=== PATIENT | male | born 1995 | race Caucasian/White ===

== ENCOUNTER 2020-09-29 20:50 | Emergency (ER) | payer OTHER ==
[2020-09-29 20:58] VITALS: BP 130/77
--- NOTE | 2020-09-29 20:59 | ED Physician Documentation ---
PD HPI CHEST PAIN - Stated complaint Stated Complaint: CP,SOA - Chief complaint Chief Complaint: Cardiac - History obtained from History obtained from: Patient - History of Present Illness Timing - onset: How many hours ago Timing - onset during: Rest Timing - details: Abrupt onset Pain level now: 7 Quality: Tightness, Pain Location: Substernal Radiation: Other (midline/substernal, radiates bilateral across anterior chest) Improved by: Nothing Worsened by: Inspiration Associated symptoms: Shortness of air. No: Diaphoresis, Nausea, Vomiting, Palpitations, Cough Similar symptoms before: Other (similar symptoms approximately 1.5 months ago but only lasted 10 minutes thus did not seek medical attention) Recently seen: Not recently seen - Additional information Additional information: c/o midline lower chest pain , onset while at home at rest approximately 1 hour [employer]. the pain waxes and wanes without obvious factors, although there is some pleuritic component as well as sometimes worse with palpation of sternum. Review of Systems Constitutional: denies: Fever Cardiac: reports: Chest pain / pressure. denies: Palpitations, Pedal edema, Calf pain Respiratory: reports: Dyspnea. denies: Cough GI: reports: Reviewed and negative Musculoskeletal: denies: Back pain, Extremity swelling PD PAST MEDICAL HISTORY - Past Medical History Past Medical History: No - Past Surgical History Past Surgical History: No - Allergies Allergies/Adverse Reactions: Allergies Allergy/AdvReac Type Severity Reaction Status Date / Time No Known Drug Allergies Allergy Verified 09/29/20 20:53 - Living Situation Living Arrangement: reports: At home PD ED PE NORMAL - Vitals Vital signs reviewed: Yes - General General: Alert and oriented X 3, No acute distress, Well developed/nourished - Neck Neck: Supple, no meningeal sign - Cardiac Cardiac: RRR, No murmur, No gallop, No rub - Respiratory Respiratory: No respiratory distress, Clear bilaterally - Abdomen Abdomen: Soft, Non tender - Extremities Extremities: No edema Results - Vitals Vitals: Vital Signs - 24 hr 09/29/20 09/29/20 20:53 21:15 Temperature 36.5 C 36.5 C Heart Rate 84 84 Respiratory 18 18 Rate Blood Pressure 130/77 130/77 O2 Saturation 98 98 Oxygen O2 Source Room air - EKG (time done) No standard instances Rate: Rate (enter#) (84) Rhythm: NSR Walling: Normal Intervals: Normal SC QRS: Normal Ischemia: ST elevation c/w repol - Labs Labs: Laboratory Tests 09/29/20 09/29/20 09/29/20 21:13 21:13 21:43 WBC 6.7 RBC 5.04 Hgb 15.2 Hct 43.2 MCV 85.7 MCH 30.2 MCHC 35.2 RDW 11.4 L Plt Count 186 MPV 10.5 Neut # (Auto) 3.8 Lymph # (Auto) 2.1 Murray # (Auto) 0.5 Eos # (Auto) 0.3 Baso # (Auto) 0.0 Absolute Nucleated RBC 0.00 Nucleated RBC % 0.0 D-Dimer < 200.0 L Sodium 140 Potassium 3.4 L Chloride 104 Carbon Dioxide 25 Anion Gap 11.0 BUN 19 Creatinine 0.9 Estimated GFR (MDRD) 103 Glucose 99 Calcium 9.3 Total Bilirubin 0.5 AST 30 ALT 30 Alkaline Phosphatase 58 Total Protein 7.2 Albumin 4.4 Globulin 2.8 Albumin/Globulin Ratio 1.6 Lipase 51 - Rads (name of study) chest xray Radiology: Prelim report reviewed, See rad report PD MEDICAL DECISION MAKING - ED course Complexity details: reviewed results, re-evaluated patient, considered differential, d/w patient ED course: 24 year old male presents to ED with chest pain x 1 hour, midline but radiates bilaterally such that most of anterior chest is involved; there is associated dyspnea, with some pleuritic component. Unremarkable w/u at this time includes EKG, CXR, and blood tests including d-dimer. On reevaluation, he is resting comfortably and reports improvement after IV toradol. Results d/w patient and he is comfortable with d/c home, will return if worse and f/u with PMD Departure - Departure Disposition: Home, Self Care Clinical Impression: Chest pain Condition: Good Instructions: ED Chest Pain Atypical Unkn Cause Follow-Up: RACHAEL Timmons [Provider Group]
[2020-09-29 21:29] LABS: BASOPHILS % (AUTO) 0.4 %; EOSINOPHILS # (AUTO) 0.3 10^3/uL (0.0-0.7); EOSINOPHILS % (AUTO) 4.3 %; HGB - HEMOGLOBIN 15.2 g/dL (14.0-18.0); LYMPHOCYTES # (AUTO) 2.1 10^3/uL (1.5-3.5); LYMPHOCYTES % (AUTO) 31.5 %; MEAN CORPUSCULAR HEMOGLOBIN 30.2 pg (27.0-31.0); MEAN CORPUSCULAR HGB CONC 35.2 g/dL (32.0-36.0); MEAN CORPUSCULAR VOLUME 85.7 fL (80.0-94.0); MEAN PLATELET VOLUME 10.5 fL (7.4-11.4); MONOCYTES # (AUTO) 0.5 10^3/uL (0.0-1.0); MONOCYTES % (AUTO) 7.9 %; NEUTROPHILS # (AUTO) 3.8 10^3/uL (1.5-6.6); NEUTROPHILS % (AUTO) 55.8 %; PLT - PLATELET COUNT 186 10^3/uL (130-450); RED BLOOD COUNT 5.04 10^6/uL (4.70-6.10); RED CELL DISTRIBUTION WIDTH 11.4 % (12.0-15.0); WHITE BLOOD COUNT 6.7 x10^3/uL (4.8-10.8)
[2020-09-29] MEDS ORDERED: KETOROLAC 30 MG/ML VIAL IVP STA (21:33)
--- NOTE | 2020-09-29 21:33 | XRAY Report ---
PROCEDURE: Chest 2 View X-Ray INDICATIONS: chest pain, dyspnea TECHNIQUE: 2 view(s) of the chest. COMPARISON: None. FINDINGS: Surgical changes and devices: None. Lungs and pleura: No pleural effusions or pneumothorax. Lungs are clear. Mediastinum: Mediastinal contours are normal. Heart size is normal. Bones and chest wall: No suspicious bony abnormalities. Soft tissues appear unremarkable. IMPRESSION: No acute pulmonary process. Reviewed by: Dora Bella MD on 09/29/2020 9:32 PM [facility] Approved by: Dora Bella MD on 09/29/2020 9:32 PM [facility] Station ID: [id number]
[2020-09-29 21:42] LABS: ALBUMIN 4.4 g/dL (3.2-5.5); ALBUMIN/GLOBULIN RATIO 1.6 (1.0-2.2); BILIRUBIN,TOTAL 0.5 mg/dL (0.2-1.0); CALCIUM 9.3 mg/dL (8.5-10.3); CREATININE 0.9 mg/dL (0.6-1.2); TOTAL PROTEIN 7.2 g/dL (6.7-8.2)
== END 2020-09-29 22:30 | disposition home or self-care (01) ==
LOC: ED 20:50
DX: R07.89 Other chest pain (principal)
CPT/HCPCS: 36415; 80053; 83690; 85025; 85379; 93005; 96374; 99284

== ENCOUNTER 2021-07-08 17:00 | Emergency (ER) | payer OTHER ==
[2021-07-08] MEDS ORDERED: BUFFERED LIDOCAINE 10 ML SYRINGE SUBQ STA (17:22)
--- NOTE | 2021-07-08 17:23 | ED Physician Documentation ---
PD HPI UPPER EXT INJURY - Stated complaint Stated Complaint: RIGHT THUMB LAC - Chief complaint Chief Complaint: Laceration - History obtained from History obtained from: Patient (25-year-old gentleman who is active [employer] and therefore up-to-date on tetanus cut his right, dominant thumb with a cheese slicer at home just prior to arrival with persistent bleeding. No other injuries.) Review of Systems Constitutional: reports: Reviewed and negative Eyes: reports: Reviewed and negative Ears: reports: Reviewed and negative Nose: reports: Reviewed and negative PD PAST MEDICAL HISTORY - Past Surgical History Past Surgical History: No - Present Medications Home Medications: Ambulatory Orders Medication Instructions Recorded Confirmed Methylphenidate HCl [Ritalin] 36 mg PO PRN PRN 07/08/21 07/08/21 - Allergies Allergies/Adverse Reactions: Allergies Allergy/AdvReac Type Severity Reaction Status Date / Time No Known Drug Allergies Allergy Verified 07/08/21 17:06 - Social History Does the pt smoke?: No Smoking Status: Never smoker Does the pt drink ETOH?: Yes Does the pt have substance abuse?: No - Immunizations Immunizations are current?: Yes PD ED PE NORMAL - Vitals Vital signs reviewed: Yes - General General: Alert and oriented X 3, No acute distress - Extremities Extremities: Other (On the pad of the right thumb there is a longitudinal 3 cm laceration running in the same plane as the axis of the finger with active bleeding.) - Neuro Neuro: Alert and oriented X 3, Normal speech Results - Vitals Vitals: Vital Signs - 24 hr 07/08/21 17:03 Temperature 36.9 C Heart Rate 77 Respiratory 14 Rate Blood Pressure 120/64 O2 Saturation 96 Oxygen O2 Source Room air Procedures - Laceration (location) R thumb Length in cm: 3 Wound type: Linear, Into subcut fat Neurovascular status: Sensory intact, Motor intact, Vascular intact Anesthesia: Lidocaine 1%, With bicarb (digital block) Wound preparation: Hibiclens, Irrigated copiously NS Skin layer closure: Nylon (4-0 x 8) Other: Tetanus UTD Departure - Departure Disposition: 01 Home, Self Care Clinical Impression: Laceration Condition: Good Record reviewed to determine appropriate education?: Yes Instructions: ED Laceration Hand Comments: Come back for any signs of infection which would include: Redness, swelling, drainage, increased pain, or fevers. You can wash it soap and water. Keep it covered and moist with bacitracin ointment which is available over the counter; avoid neosporin. Follow-up with your physician in About 14 days for suture removal.
[2021-07-08 17:54] VITALS: BP 131/74
== END 2021-07-08 17:56 | disposition home or self-care (01) ==
LOC: ED 17:00
DX: S61.011A Laceration without foreign body of right thumb without damage to nail, initial encounter (principal); W27.4XXA Contact with kitchen utensil, initial encounter; Y93.G9 Activity, other involving cooking and grilling; Y92.009 Unspecified place in unspecified non-institutional (private) residence as the place of occurrence of the external cause
CPT/HCPCS: 12002; 99281